=== PATIENT | female | born 1980 | race Caucasian/White ===

== ENCOUNTER 2018-06-21 13:58 | Emergency (ER) | payer MEDICAID ==
[~2018-06-21] VITALS: Ht 167.6 cm; Wt 95.3 kg
[2018-06-21 14:05] VITALS: BP 130/78
--- NOTE | 2018-06-21 15:11 | NUR ---
PT AMBULATES TO BED 5
--- NOTE | 2018-06-21 15:13 | NUR ---
BIB SELF. AAOX4. C/O COUGH X2 WEEKS, REPORTS USING BREATHING MACHINE WITH NO RELIEF. USED DAYQUIL, NYQUIL. NO SOB NOTED. INSPIRATORY WHEEZING NOTED TO L UPPER LOBE. PT STATES PRODUCTIVE COUGH WITH GREEN PHLEGM. HOB UP. BED RAILS UPX1. ON LOW BED POSITION, LOCKED. ER MADE AWARE OF PT STATUS.
[2018-06-21] MEDS ORDERED: ALBUTEROL SULFATE/IPRATROPIU 3 ML SOL IH ONE (15:55)
[2018-06-21] MEDS ORDERED: DEXAMETHASONE 10 MG/ML VIAL IM ONE (15:55)
--- NOTE | 2018-06-21 16:05 | NUR ---
Flu sample collected and given to labor commissioner Sheila
--- NOTE | 2018-06-21 16:14 | NUR ---
AAO X 4 PT TAKEN OFF THE UNIT FOR XRAY VIA WHEEL CHAIR BY [employer] BILL
[2018-06-21 18:10] VITALS: BP 131/80
--- NOTE | 2018-06-21 18:10 | NUR ---
Patient discharged with v/s stable. Written and verbal after care instructions given and explained. Patient alert, oriented and verbalized understanding of instructions. Ambulatory with steady gait. All questions addressed prior to discharge. ID band removed. Patient advised to follow up with PMD. Rx of Albuterol sulfate 0.083% soln, Albuterol 90mcg/actuation, Azithromycin, Prednisone given. Patient educated on indication of medication including possible reaction and side effects. Opportunity to ask questions provided and answered.
== END 2018-06-21 18:10 | disposition home or self-care (01) ==
LOC: MED 13:58
DX: J45.901 Unspecified asthma with (acute) exacerbation (principal); J32.9 Chronic sinusitis, unspecified; I10 Essential (primary) hypertension
CPT/HCPCS: 71046; 87804; 94640; 96372; 99284; J1100; J7620

== ENCOUNTER 2018-07-30 15:45 | Emergency (ER) | payer MEDICAID ==
[~2018-07-30] VITALS: Ht 167.6 cm; Wt 99.5 kg
[2018-07-30 16:11] VITALS: BP 132/84
--- NOTE | 2018-07-30 16:27 | NUR ---
PT AMBULATED TO CHAIR E.
--- NOTE | 2018-07-30 16:55 | NUR ---
PT BIB SELF C/O MED-REFILL. PT DENIES N/V/D; SKIN IS INTACT, PINK/WARM/DRY; AAOX4, PERRL, WITH EVEN AND STEADY GAIT; LUNGS CLEAR BL, BREATHING UNLABORED; HR EVEN AND REGULAR, BL PERIPHERAL PULSES PRESENT; BS ACTIVE X4, NO TENDERNESS TO PALPATION. PT DENIES ANY FEVER, CP, SOB, OR COUGH AT THIS TIME; PT STATES 0/10 PAIN AT THIS TIME; VSS; PATIENT POSITIONED FOR COMFORT; HOB ELEVATED; BEDRAILS UP X2; BED DOWN.
[2018-07-30 17:03] VITALS: BP 124/82
--- NOTE | 2018-07-30 17:04 | NUR ---
Patient discharged with v/s stable. Written and verbal after care instructions given and explained. Patient alert, oriented and verbalized understanding of instructions. Ambulatory with steady gait. All questions addressed prior to discharge. ID band removed. Patient advised to follow up with PMD. Rx of VENTOLIN HFA, ALBUTEROL given. Patient educated on indication of medication including possible reaction and side effects. Opportunity to ask questions provided and answered.
== END 2018-07-30 17:00 | disposition home or self-care (01) ==
LOC: MED 15:45
DX: J45.909 Unspecified asthma, uncomplicated (principal); I10 Essential (primary) hypertension; Z76.0 Encounter for issue of repeat prescription
CPT/HCPCS: 99283

== ENCOUNTER 2019-02-05 15:50 | Emergency (ER) | payer MEDICAID, OTHER ==
[~2019-02-05] VITALS: Ht 167.6 cm; Wt 99.5 kg
[2019-02-05 15:51] VITALS: BP 134/75
--- NOTE | 2019-02-05 15:59 | NUR ---
38/F BIB SELF C/O N/V/D & GENERALIZED ABD PAIN X1 WEEK. PAIN WORSE AFTER EATING. PT THINKS SHE HAD FOOD POISONING FROM CHICKEN SHE ATE.MEDHX:ASTHMA, HTN. PATIENT STATES PAIN OF 5/10 AT THIS TIME.PATIENT POSITIONED FOR COMFORT; HOB ELEVATED; BEDRAILS UP X1; BED DOWN. ER MD MADE AWARE OF PT STATUS.
--- NOTE | 2019-02-05 16:05 | NUR ---
Dr. Caro is evaluating the patient at bedside.
[2019-02-05] MEDS ORDERED: LOPERAMIDE 2 MG CAP PO ONE (16:10)
[2019-02-05] MEDS ORDERED: NACL 0.9% 1,000 ML IV ONE (16:10)
[2019-02-05] MEDS ORDERED: ONDANSETRON 4 MG TAB PO ONE (16:10)
[2019-02-05] MEDS ORDERED: METOCLOPRAMIDE 10 MG/2 ML INJ VIAL IVP ONE (16:15)
[2019-02-05 16:51] LABS: BASOPHILS # (AUTO) 0.1 K/uL (0.00-0.22); BASOPHILS % (AUTO) 1.1 % (0.0-2.0); EOSINOPHILS # (AUTO) 0.7 K/uL (0-0.4); EOSINOPHILS % (AUTO) 6.9 % (0.0-4.0); HEMATOCRIT 36.9 % (36-48); HEMOGLOBIN 11.9 g/dL (12.0-16.0); LYMPHOCYTES # (AUTO) 3.4 K/uL (2.5-16.5); MEAN CORPUSCULAR HEMOGLOBIN 25 pg (27-31); MEAN CORPUSCULAR HGB CONC 32 g/dL (33-37); MEAN CORPUSCULAR VOLUME 78.8 fL (80-94); MONOCYTES # (AUTO) 0.6 K/uL (0.8-1.0); MONOCYTES % (AUTO) 5.4 % (1.7-9.3); NEUTROPHILS # (AUTO) 5.6 K/uL (1.8-7.7); NEUTROPHILS % (AUTO) 53.6 % (42.2-75.2); PLATELET COUNT (AUTO) 461 K/uL (140-450); RED BLOOD CELL COUNT(AUTO) 4.68 MIL/uL (4.20-5.40); RED CELL DISTRIBUTION WIDTH 15.8 % (11.6-13.7); WHITE BLOOD COUNT (AUTO) 10.4 K/uL (4.8-10.8)
[2019-02-05 17:10] LABS: ANION GAP 12.1 (8-16); CARBON DIOXIDE 29.1 mmol/L (21-32); CREATININE 0.8 mg/dL (0.6-1.3); POTASSIUM 3.2 mmol/L (3.5-5.1)
[2019-02-05 17:15] LABS: ALBUMIN 3.3 g/dL (3.4-5.0); TOTAL BILIRUBIN 0.2 mg/dL (0.0-1.0)
[2019-02-05] MEDS ORDERED: POTASSIUM CHLORIDE 10 MEQ TABER PO ONE (17:25)
--- NOTE | 2019-02-05 17:37 | NUR ---
IV removed, catheter intact and site benign. Applied folded 4x4 gauze and tape to stop bleeding.
[2019-02-05 17:41] VITALS: BP 128/70
--- NOTE | 2019-02-05 17:41 | NUR ---
Patient discharged with v/s stable. Written and verbal after care instructions given and explained. Patient alert, oriented and verbalized understanding of instructions. Ambulatory with steady gait. All questions addressed prior to discharge. ID band removed. Patient advised to follow up with PMD. Rx of Reglan 10mg given. Patient educated on indication of medication including possible reaction and side effects. Opportunity to ask questions provided and answered.
--- NOTE | 2019-02-11 06:55 | NUR ---
Late entry. Confirmed with RN that 0.9 NS IV 1000ml completed at 1622 and wasw started at 1537
== END 2019-02-05 17:41 | disposition home or self-care (01) ==
LOC: MED 15:50
DX: R11.2 Nausea with vomiting, unspecified (principal); R19.7 Diarrhea, unspecified; J45.909 Unspecified asthma, uncomplicated; I10 Essential (primary) hypertension; Z98.890 Other specified postprocedural states
CPT/HCPCS: 36415; 80053; 81002; 81025; 85025; 96361; 96374; 99283; J2765; J7030

== ENCOUNTER 2019-06-03 23:46 | Emergency (ER) | payer OTHER ==
[~2019-06-03] VITALS: Ht 167.6 cm; Wt 99.8 kg
--- NOTE | 2019-06-03 23:50 | NUR ---
PT CATRINA AZULS. TAKEN TO BED 4
[2019-06-03 23:55] VITALS: BP 143/84
--- NOTE | 2019-06-04 00:05 | NUR ---
38 YO FEMALE BIBA CO CHEST PAIN SINCE TODAY. PT STAED THAT SHE TOOK A NEW DIET PILL AND NOW SHE HAS THE CHEST PAIN. PT DECRIBES THE PAIN 8/10 STABBING PAIN THAT STARTS UPPER EPIGASTRIC AREA AND RADIATES UNDER BREASTS AND UP STERNUM. EKG DONE WITH NSR AT 86 BEATS. PT HAS HX OF HTN, ASTHMA AND IS BORDERLINE DM.
--- NOTE | 2019-06-04 00:09 | NUR ---
Dr. Starks examining patient.
[2019-06-04 00:53] LABS: BASOPHILS # (AUTO) 0.1 K/uL (0.00-0.22); BASOPHILS % (AUTO) 0.6 % (0.0-2.0); EOSINOPHILS # (AUTO) 0.6 K/uL (0-0.4); EOSINOPHILS % (AUTO) 3.8 % (0.0-4.0); HEMATOCRIT 37.4 % (36-48); HEMOGLOBIN 11.9 g/dL (12.0-16.0); LYMPHOCYTES # (AUTO) 1.9 K/uL (2.5-16.5); LYMPHOCYTES % (AUTO) 11.9 % (20.5-51.1); MEAN CORPUSCULAR HEMOGLOBIN 26 pg (27-31); MEAN CORPUSCULAR HGB CONC 32 g/dL (33-37); MONOCYTES # (AUTO) 0.7 K/uL (0.8-1.0); NEUTROPHILS % (AUTO) 79.7 % (42.2-75.2); PLATELET COUNT (AUTO) 432 K/uL (140-450); RED BLOOD CELL COUNT(AUTO) 4.62 MIL/uL (4.20-5.40); RED CELL DISTRIBUTION WIDTH 15.1 % (11.6-13.7); WHITE BLOOD COUNT (AUTO) 16.3 K/uL (4.8-10.8)
--- NOTE | 2019-06-04 01:09 | NUR ---
SITTING UPRIGHT IN [facility]--CONTINUES TO DENIE CHEST PAIN STATED , TOOK A NEW DIET PILL WHICH MADE HER STOMACH HURT RADIATED TO EPIGASTRIC REGION----ADMITS NON COMPLIANT WITH METFORMIN-
[2019-06-04 01:12] LABS: ALBUMIN 3.5 g/dL (3.4-5.0); ANION GAP 12.6 (8-16); CARBON DIOXIDE 28.6 mmol/L (21-32); CREATININE 0.8 mg/dL (0.6-1.3); POTASSIUM 3.2 mmol/L (3.5-5.1); TOTAL BILIRUBIN 0.2 mg/dL (0.0-1.0)
[2019-06-04 01:24] LABS: APPEARANCE,URINE CLOUDY (CLEAR); BILIRUBIN,URINE 1+ (NEGATIVE); BLOOD, URINE 3+ (NEGATIVE); COLOR,URINE RED (YELLOW); LEUKOCYTE ESTERASE ,URINE TRACE (NEGATIVE); NITRITE, URINE NEGATIVE (NEGATIVE); PH,URINE 5.5 (5.0-9.0); UGLUCOSE NEGATIVE (NEGATIVE)
[2019-06-04 01:39] LABS: RBC,URINE TOO NUMEROUS TO COUN /HPF (0-5)
--- NOTE | 2019-06-04 01:42 | NUR ---
ULTRASOUND AT BEDSIDE
[2019-06-04 03:24] VITALS: BP 133/87
--- NOTE | 2019-06-04 03:24 | NUR ---
INSTRUCTED TO RETURN FOR SURGICAL EVAL PER Patient discharged with v/s stable. Written and verbal after care instructions given and explained. Patient verbalized understanding. Ambulatory with steady gait. All questions addressed prior to discharge. Advised to follow up with PMD.
== END 2019-06-04 03:24 | disposition home or self-care (01) ==
LOC: MED 23:46
DX: K80.20 Calculus of gallbladder without cholecystitis without obstruction (principal); K82.8 Other specified diseases of gallbladder; E11.9 Type 2 diabetes mellitus without complications; J45.909 Unspecified asthma, uncomplicated; I10 Essential (primary) hypertension; Z98.890 Other specified postprocedural states
CPT/HCPCS: 36415; 71045; 76705; 80053; 81001; 83690; 84484; 84702; 85025; 87086; 93005; 99285; Q0092

== ENCOUNTER 2019-06-05 11:30 | Inpatient (IN) | payer OTHER ==
[~2019-06-05] VITALS: Ht 167.6 cm; Wt 99.8 kg
[2019-06-05 11:41] VITALS: BP 105/64
--- NOTE | 2019-06-05 12:06 | NUR ---
PT. AMBULATED TO BED 12
--- NOTE | 2019-06-05 12:10 | NUR ---
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
--- NOTE | 2019-06-05 12:52 | NUR ---
PT COMFORTABLE IN BED SIDE RAILS UP AND LOCK.
--- NOTE | 2019-06-05 12:53 | NUR ---
DR ARENAS AT BEDSIDE EVALUATING PT.
[2019-06-05] MEDS ORDERED: NACL 0.9% 500 ML IV ONE (13:01)
[2019-06-05] MEDS ORDERED: KETOROLAC 30 MG/ML VIAL IVP ONE (13:05)
--- NOTE | 2019-06-05 13:45 | NUR ---
clint at bedside.
[2019-06-05 13:49] LABS: BASOPHILS # (AUTO) 0.1 K/uL (0.00-0.22); BASOPHILS % (AUTO) 1.1 % (0.0-2.0); EOSINOPHILS # (AUTO) 0.3 K/uL (0-0.4); EOSINOPHILS % (AUTO) 3.7 % (0.0-4.0); HEMATOCRIT 38.4 % (36-48); HEMOGLOBIN 12.5 g/dL (12.0-16.0); LYMPHOCYTES # (AUTO) 2.7 K/uL (2.5-16.5); MEAN CORPUSCULAR HEMOGLOBIN 26 pg (27-31); MEAN CORPUSCULAR HGB CONC 33 g/dL (33-37); MEAN CORPUSCULAR VOLUME 81.1 fL (80-94); MONOCYTES # (AUTO) 0.4 K/uL (0.8-1.0); MONOCYTES % (AUTO) 4.7 % (1.7-9.3); NEUTROPHILS # (AUTO) 4.5 K/uL (1.8-7.7); NEUTROPHILS % (AUTO) 56.5 % (42.2-75.2); PLATELET COUNT (AUTO) 436 K/uL (140-450); RED BLOOD CELL COUNT(AUTO) 4.73 MIL/uL (4.20-5.40); RED CELL DISTRIBUTION WIDTH 15.3 % (11.6-13.7)
--- NOTE | 2019-06-05 14:22 | NUR ---
PT AMBULATED TO BR.
[2019-06-05 14:34] LABS: ALBUMIN 3.6 g/dL (3.4-5.0); ANION GAP 13.3 (8-16); CARBON DIOXIDE 27.2 mmol/L (21-32); CREATININE 0.7 mg/dL (0.6-1.3); POTASSIUM 3.5 mmol/L (3.5-5.1); TOTAL BILIRUBIN 0.4 mg/dL (0.0-1.0)
[2019-06-05] MEDS ORDERED: MORPHINE SULFATE 2 MG/ML SYR IVP PRN (17:15)
--- NOTE | 2019-06-05 18:15 | NUR ---
Patient will be admitted to care of DR Carranza. Admited to MST. Will go to room 119 A. Belongings list completed. Report to checo madera.
--- NOTE | 2019-06-05 18:15 | NUR ---
RECEIVED BEDSIDE SHIFT REPORT FROM ER NURSE FOR CONTINUATION OF CARE.
--- NOTE | 2019-06-05 19:20 | NUR ---
BEDSIDE SHIFT REPORT GIVEN TO BOOTH USHER NURSE.
--- NOTE | 2019-06-05 19:20 | NUR ---
RECEIVED BEDSIDE REPORT FROM AM SHIFT RN FOR PT'S CONTINUITY OF CARE. PT IS NEW ADMIT, CURRENTLY OFF UNIT FOR HIDA SCAN PROCEDURE.
--- NOTE | 2019-06-05 20:19 | NUR ---
RECEIVED CALL FROM [employer], PT NEEDED PRN IVP PAIN MEDICATION. ADMINISTERED PRN IVP PAIN MEDICATION MORPHINE 2MG ORDERED. PT FELT NAUSEATED SHORTLY AFTER. WILL MEDICATE PT WITH ANTI NAUSEA MEDICATION.
[2019-06-05] MEDS: ONDANSETRON 4 MG/2 ML VIAL IVP PRN (20:29)
--- NOTE | 2019-06-05 20:29 | NUR ---
ADMINISTERED PRN IVP ANTI NAUSEA MEDICATION ORDERED. PT TOLERATED IT WELL. PT TEACHING GIVEN, STAYED WITH PT FOR A BIT. INFORMED NUCLEAR [employer] TECH TO CALL RN IF NEEDED.
[2019-06-05] MEDS ORDERED: PIPERACILLIN/TAZOBACTAM 3.375 GM VIAL IV ONE (21:59)
[2019-06-05 22:00] VITALS: BP 113/82
--- NOTE | 2019-06-05 22:00 | NUR ---
PT BACK IN THE UNIT FROM CT FOR CT ABD. VS CHECKED, ADMISSION ASSESSMENT AND QUESTIONNAIRE DONE. EXPLAINED T PT THE EDGE FINISHER ROUTINE AN HOSPITAL ENVIRONMENT, PT VERBALIZED UNDERSTANDING. WILL CONTINUE TO MONITOR PT.
[2019-06-05] MEDS: PIPERACILLIN/TAZOBACTAM 3.375 GM in DEXTROSE 5% 50 ML IV SCH (22:23)
--- NOTE | 2019-06-05 22:45 | NUR ---
RECEIVED TELEPHONE ORDER FROM DR. FARMER TO OBTAIN CONSENT FROM PT FOR LAPAROSCOPIC POSSIBLE OPEN CHOLECYSTECTOMY POSSIBLE CHOLANGIOGRAM, TYPE AND SCREEN, AND D5 NS AT 125ML/HR. WILL EXPEDITE ORDER.
--- NOTE | 2019-06-05 23:00 | NUR ---
CONSENT OBTAINED FOR PROCEDURE IN A.M. INSTRUCTED PT TO ASK MD IN A.M. IF AND WHEN PT HAS ADDITIONAL QUESTIONS. PT HAS BEEN NPO. PT DENIES ANY PAIN. WILL CONTINUE TO MONITOR PT.
[2019-06-05] MEDS: DEXT 5% / NACL 0.9% 500 ML IV SCH (23:13)
--- NOTE | 2019-06-06 02:00 | NUR ---
MADE ROUNDS. PT ASLEEP WITH NO SIGNS OF DISTRESS. WILL CONTINUE TO MONITOR PT.
[2019-06-06] MEDS: DEXT 5% / NACL 0.9% 500 ML IV SCH ×4 (02:45→17:03)
--- NOTE | 2019-06-06 04:15 | NUR ---
MADE ROUNDS. NOTIFIED PT RE: SCHEDULED PROCEDURE, INSTRUCTED PT NOT TO HAVE ANY CLOTHING OR JEWELRY FOR THE SX. PT VERBALIZED UNDERSTANDING.
[2019-06-06] MEDS ORDERED: PIPERACILLIN/TAZOBACTAM 3.375 GM VIAL IV ONE (04:50)
[2019-06-06] MEDS: PIPERACILLIN/TAZOBACTAM 3.375 GM in DEXTROSE 5% 50 ML IV SCH (05:27)
--- NOTE | 2019-06-06 05:27 | NUR ---
ADMINISTERED SCHEDULED IV ABX ORDERED. PT ASLEEP WITH NO SIGNS OF DISTRESS. WILL CONTINUE TO MONITOR PT.
[2019-06-06 06:21] LABS: BASOPHILS # (AUTO) 0.1 K/uL (0.00-0.22); BASOPHILS % (AUTO) 0.8 % (0.0-2.0); EOSINOPHILS # (AUTO) 0.3 K/uL (0-0.4); EOSINOPHILS % (AUTO) 4.2 % (0.0-4.0); HEMATOCRIT 37.2 % (36-48); HEMOGLOBIN 12.1 g/dL (12.0-16.0); LYMPHOCYTES # (AUTO) 2.1 K/uL (2.5-16.5); LYMPHOCYTES % (AUTO) 26.5 % (20.5-51.1); MEAN CORPUSCULAR HEMOGLOBIN 26 pg (27-31); MEAN CORPUSCULAR HGB CONC 32 g/dL (33-37); MEAN CORPUSCULAR VOLUME 81.5 fL (80-94); MONOCYTES # (AUTO) 0.6 K/uL (0.8-1.0); MONOCYTES % (AUTO) 7.7 % (1.7-9.3); NEUTROPHILS # (AUTO) 4.8 K/uL (1.8-7.7); NEUTROPHILS % (AUTO) 60.8 % (42.2-75.2); PLATELET COUNT (AUTO) 386 K/uL (140-450); RED BLOOD CELL COUNT(AUTO) 4.57 MIL/uL (4.20-5.40); RED CELL DISTRIBUTION WIDTH 15.1 % (11.6-13.7)
--- NOTE | 2019-06-06 06:50 | NUR ---
INFORMED PT RE: URINE TEST PROTOCOL PRIOR TO SX. PT LYING DOWN ASLEEP, WOKE UP, VERBALIZED UNDERSTANDING. WILL ENDORSE TO AM SHIFT RN FOR PT'S CONTINUITY OF CARE. PREOP CHECKLIST DONE.
[2019-06-06 06:53] LABS: PROTHROMBIN TIME 9.8 secs (10.8-13.4)
[2019-06-06 07:00] LABS: ALBUMIN 3.1 g/dL (3.4-5.0); CARBON DIOXIDE 30.9 mmol/L (21-32); CREATININE 0.8 mg/dL (0.6-1.3); TOTAL BILIRUBIN 0.5 mg/dL (0.0-1.0)
--- NOTE | 2019-06-06 07:15 | NUR ---
RECEIVED CALL FROM FRANK (LAB) FOR CRITICAL LAB VALUE, POTASSIUM - 2.9, REPORT GIVEN TO SÁNCHEZ JUSTIN RN TO PAGE DR. DEVINE/CARPENTER REFRIGERATOR MD FOR REPORTING.
--- NOTE | 2019-06-06 07:20 | NUR ---
PAGED DR. DEVINE. AWAITING ORDERS. SAFETY MEASURES IN PLACE
--- NOTE | 2019-06-06 07:25 | NUR ---
RECEIVED BEDSIDE REPORT FROM NIGHTSHIFT NURSE. PT RESTING IN BED UPON ARRIVAL. ABLE TO MAKE NEEDS KNOWN. RESPIRATIONS EVEN AND UNLABORED WITH NO SOB OR RESPIRATORY DISTRESS. SKIN WARM AND DRY TO TOUCH. IV SITE IN LEFT HAND 22G IS CLEAN, DRY, AND INTACT. SAFETY MEASURES IN PLACE. WILL CONTINUE TO MONITOR.
[2019-06-06 07:26] LABS: POTASSIUM 2.9 mmol/L (3.5-5.1)
[2019-06-06 08:00] VITALS: BP 108/53
--- NOTE | 2019-06-06 08:38 | NUR ---
PT LEFT TO GO TO SURGERY. SAFETY MEASURES IN PLACE. WILL CONTINUE TO MONITOR
[2019-06-06] MEDS: ENOXAPARIN 40 MG/0.4 ML SYR SUBQ SCH (09:00)
[2019-06-06] MEDS: BUPIVACAINE-MPF 0.25% 30 ML VIAL INJ ONE ×2 (09:08→10:36)
[2019-06-06] MEDS ORDERED: HYDROcodone/APAP 5/325 MG 1 TAB TAB PO PRN (10:30)
[2019-06-06] MEDS ORDERED: HYDROmorphone 1 MG/ML AMP IVP PRN (10:30)
--- NOTE | 2019-06-06 10:45 | NUR ---
PATIENT RETURNED FROM SURGERY. REPORT GIVEN FROM OR NURSE. PT RESTING IN BED UPON ARRIVAL. ABLE TO MAKE NEEDS KNOWN. RESPIRATIONS EVEN AND UNLABORED WITH NO SOB OR RESPIRATORY DISTRESS. SKIN WARM AND DRY TO TOUCH. SAFETY MEASURES IN PLACE. WILL CONTINUE TO MONITOR
[2019-06-06] MEDS ORDERED: POTASSIUM CHLORIDE 10 MEQ TABER PO SCH ×2 (11:16→15:17)
[2019-06-06] MEDS: ACETAMINOPHEN 325 MG TAB PO PRN ×2 (11:36→17:37)
--- NOTE | 2019-06-06 12:05 | NUR ---
DC PLANNIN YRS OLD FEMALE PATIENT WAS ADMITTED FROM HOME WITH A DX OF CHOLECYSTITIS. PT HAS A HX OF ASTHMA, BORDERLINE DM AND HTN . US OF ABD SHOWED CHOLECYSTITIS WITH MILD GALLBLADDER WAS THICKENING. ADMINISTERED IVF, IV PAIN MEDS AND ZOSYN IV ABX . CONSULTED WITH SURGEON , DR SIERRA PERFORMED LAP LORENE TODAY PT TOLERATED WELL WILL CONTINUE TO MONITOR .DC PLAN TO GO HOME WHEN STABLE CM TO FOLLOW.
--- NOTE | 2019-06-06 12:30 | NUR ---
PT IV IS MALFUNCTIONING. IT NO LONGER FLUSHES NOR IS THERE BLOOD RETURN. NEW IV PLACED IN RIGHT HAND 22G IS CLEAN, DRY, AND INTACT. SAFETY MEASURES IN PLACE. WILL CONTINUE TO MONITOR
[2019-06-06] MEDS: SODIUM CHLORIDE FLUSH 10 ML SYR IVF SCH ×2 (13:07→20:41)
[2019-06-06] MEDS: ONDANSETRON 4 MG/2 ML VIAL IVP PRN (13:08)
--- NOTE | 2019-06-06 13:12 | NUR ---
PT CALLED AND COMPLAINED OF NAUSEA. PRN ZOFRAN ADMINISTERED PRESCRIBED PER MD ORDER. PT TOLERATED WELL. MEDICATION EDUCATION PERFORMED. PT VERBALIZED UNDERSTANDING. SAFETY MEASURES IN PLACE. WILL CONTINUE TO MONITOR.
--- NOTE | 2019-06-06 15:30 | NUR ---
PT RESTING IN BED UPON ARRIVAL. ABLE TO MAKE NEEDS KNOWN. RESPIRATIONS EVEN AND UNLABORED WITH NO SOB OR RESPIRATORY DISTRESS. SKIN WARM AND DRY TO TOUCH. SAFETY MEASURES IN PLACE. WILL CONTINUE TO MONITOR
[2019-06-06 16:00] VITALS: BP 104/68
--- NOTE | 2019-06-06 17:37 | NUR ---
PATIENT CALLED AND COMPLAINED OF A MILD HEADACHE. PRN TYLENOL ADMINISTERED PRESCRIBED PER MD ORDER. PT TOLERATED WELL. MEDICATION EDUCATION PERFORMED. PT VERBALIZED UNDERSTANDING. SAFETY MEASURES IN PLACE. WILL CONTINUE TO MONITOR
--- NOTE | 2019-06-06 19:09 | NUR ---
ENDORSED AT BEDSIDE TO NIGHTSHIFT NURSE. PT RESTING IN BED UPON ARRIVAL. ABLE TO MAKE NEEDS KNOWN. RESPIRATIONS EVEN AND UNLABORED WITH NO SOB OR RESPIRATORY DISTRESS. SKIN WARM AND DRY TO TOUCH. SAFETY MEASURES IN PLACE. PT STABLE
--- NOTE | 2019-06-06 19:13 | NUR ---
RECEIVED PATIENT FROM AM SHIFT NURSE IN STABLE CONDITION FOR CONTINUITY OF CARE. RESPIRATIONS EVEN, UNLABORED. NO C/O PAIN. NO S/SX ACUTE DISTRESS. IV SITE NOTED TO RIGHT HAND 22G PATENT/INTACT, INFUSING FLUIDS WELL. CALL LIGHT WITHIN REACH. WILL CONTINUE TO MONITOR.
[2019-06-06] MEDS: KETOROLAC 30 MG/ML VIAL IVP PRN (20:45)
--- NOTE | 2019-06-06 20:45 | NUR ---
PATIENT C/O ACHING BACK PAIN 12/02. MEDICATED ORDERED. REPOSITIONED FOR COMFORT. CALL LIGHT WITHIN REACH.WILL CONTINUE TO MONITOR.
--- NOTE | 2019-06-06 21:45 | NUR ---
REASSESSED PAIN LEVEL AT 0/10. PATIENT RESTING COMFORTABLY IN BED. NO S/SX ACUTE DISTRESS. CALL LIGHT WITHIN REACH.WILL CONTINUE TO MONITOR.
--- NOTE | 2019-06-06 23:10 | NUR ---
MADE ROUNDS. PATIENT AWAKE AND IN STABLE CONDITION. NO C/O PAIN. NO S/SX ACUTE DISTRESS. CALL LIGHT WITHIN REACH. WILL CONTINUE TO MONITOR.
[2019-06-07] VITALS: BP 139/84
[2019-06-07] MEDS: ACETAMINOPHEN 325 MG TAB PO PRN (00:46)
[2019-06-07] MEDS: DEXT 5% / NACL 0.9% 500 ML IV SCH ×2 (00:46→08:19)
--- NOTE | 2019-06-07 00:46 | NUR ---
PATIENT C/O ACHING BACK PAIN 08/01. MEDICATED ORDERED. CALL LIGHT WITHIN REACH. WILL CONTINUE TO MONITOR.
--- NOTE | 2019-06-07 01:46 | NUR ---
REASSESSED PAIN LEVEL, PATIENT STATED PAIN IS 4/10. REPOSITIONED AND PROVIDED LOW STIMULI ENVIRONMENT TO ASSIST IN PAIN MANAGEMENT. WILL CONTINUE TO MONITOR.
[2019-06-07] MEDS: KETOROLAC 30 MG/ML VIAL IVP PRN ×2 (02:48→09:45)
--- NOTE | 2019-06-07 02:48 | NUR ---
PATIENT C/O ACHING BACK PAIN 08/01. MEDICATED ORDERED. WILL CONTINUE TO MONITOR.
--- NOTE | 2019-06-07 03:48 | NUR ---
REASSESSED PATIENT'S PAIN LEVEL, PATIENT IS ASLEEP. NO S/SX ACUTE DISTRESS. CALL LIGHT WITHIN REACH. WILL CONTINUE TO MONITOR.
[2019-06-07] MEDS: SODIUM CHLORIDE FLUSH 10 ML SYR IVF SCH (05:05)
--- NOTE | 2019-06-07 05:23 | NUR ---
PATIENT IS ASLEEP AND IN STABLE CONDITION. NO C/O PAIN. NO S/SX ACUTE DISTRESS. CALL LIGHT WITHIN REACH. WILL CONTINUE TO MONITOR.
[2019-06-07 06:32] LABS: BASOPHILS # (AUTO) 0.1 K/uL (0.00-0.22); BASOPHILS % (AUTO) 0.5 % (0.0-2.0); EOSINOPHILS % (AUTO) 0.2 % (0.0-4.0); HEMOGLOBIN 10.7 g/dL (12.0-16.0); LYMPHOCYTES # (AUTO) 2.8 K/uL (2.5-16.5); LYMPHOCYTES % (AUTO) 22.2 % (20.5-51.1); MEAN CORPUSCULAR HEMOGLOBIN 26 pg (27-31); MEAN CORPUSCULAR HGB CONC 32 g/dL (33-37); MEAN CORPUSCULAR VOLUME 81.8 fL (80-94); MONOCYTES # (AUTO) 0.7 K/uL (0.8-1.0); MONOCYTES % (AUTO) 5.8 % (1.7-9.3); NEUTROPHILS # (AUTO) 8.9 K/uL (1.8-7.7); NEUTROPHILS % (AUTO) 71.3 % (42.2-75.2); PLATELET COUNT (AUTO) 402 K/uL (140-450); RED BLOOD CELL COUNT(AUTO) 4.15 MIL/uL (4.20-5.40); RED CELL DISTRIBUTION WIDTH 15.1 % (11.6-13.7); WHITE BLOOD COUNT (AUTO) 12.4 K/uL (4.8-10.8)
--- NOTE | 2019-06-07 07:16 | NUR ---
ENDORSED PATIENT IN STABLE CONDITION TO AM SHIFT FOR CONTINUITY OF CARE.
--- NOTE | 2019-06-07 07:21 | NUR ---
RECEIVED BEDSIDE REPORT FROM NIGHTSHIFT NURSE. PT RESTING IN BED. ABLE TO MAKE NEEDS KNOWN. RESPIRATIONS EVEN AND UNLABORED WITH NO SOB OR RESPIRATORY DISTRESS. SKIN WARM AND DRY TO TOUCH. IV SITE IN RIGHT HAND 22G IS CLEAN, DRY, AND INTACT. SAFETY MEASURES IN PLACE. WILL CONTINUE TO MONITOR
--- NOTE | 2019-06-07 07:46 | NUR ---
PATIENT HAS BEEN SCREENED AND CATEGORIZED LOW NUTRITION RISK. PATIENT WILL BE SEEN WITHIN 7 DAYS OF ADMISSION. 06/13/[address]
[2019-06-07 08:00] VITALS: BP 102/52
[2019-06-07 08:28] LABS: ANION GAP 11.2 (8-16); CARBON DIOXIDE 28.5 mmol/L (21-32); CREATININE 0.8 mg/dL (0.6-1.3); POTASSIUM 3.7 mmol/L (3.5-5.1); TOTAL BILIRUBIN 0.2 mg/dL (0.0-1.0)
[2019-06-07 08:29] LABS: ALBUMIN 2.9 g/dL (3.4-5.0)
[2019-06-07] MEDS ORDERED: METOCLOPRAMIDE 10 MG/2 ML INJ VIAL ONE (08:45)
[2019-06-07] MEDS ORDERED: GLYCOPYRROLATE 0.2 MG/ML VIAL ONE (08:45)
[2019-06-07] MEDS ORDERED: fentaNYL 0.05 MG/ML VIAL ONE (08:45)
[2019-06-07] MEDS ORDERED: SUCCINYLCHOLINE CHLORIDE 200 MG/10 ML VIAL IVP ONE (08:45)
[2019-06-07] MEDS ORDERED: SEVOFLURANE 250 ML BTL INH ONE (08:45)
[2019-06-07] MEDS ORDERED: PROPOFOL 200 MG/20 ML VIAL IV ONE (08:45)
[2019-06-07] MEDS ORDERED: NEOSTIGMINE 1:1000 10 MG/10 ML VIAL ONE (08:45)
[2019-06-07] MEDS ORDERED: DEXAMETHASONE 4 MG/ML VIAL ONE (08:45)
[2019-06-07] MEDS ORDERED: ROCURONIUM 50 MG/5 ML VIAL IV ONE (08:45)
[2019-06-07] MEDS ORDERED: MIDAZOLAM 2 MG/2 ML VIAL ONE (08:45)
[2019-06-07] MEDS ORDERED: KETOROLAC 30 MG/ML VIAL ONE (08:45)
[2019-06-07] MEDS ORDERED: ONDANSETRON 4 MG/2 ML VIAL ONE (08:45)
[2019-06-07] MEDS: ENOXAPARIN 40 MG/0.4 ML SYR SUBQ SCH (09:00)
[2019-06-07] MEDS: ONDANSETRON 4 MG/2 ML VIAL IVP PRN (09:45)
--- NOTE | 2019-06-07 09:45 | NUR ---
PT CALLED AND COMPLAINED OF PAIN. PRN PAIN MEDICATION ADMINISTERED PRESCRIBED PER MD ORDER. PT TOLERATED WELL. MEDICATION EDUCATION PERFORMED. PT VERBALIZED UNDERSTANDING. SAFETY MANURES IN PLACE. WILL CONTINUE TO MONITOR
--- NOTE | 2019-06-07 10:45 | NUR ---
PT IS AWARE OF DISCHARGE AND WOULD LIKE TO LEAVE AFTER LUNCH. SAFETY MEASURES IN PLACE. WILL CONTINUE TO MONITOR
[2019-06-07 11:28] VITALS: BP 102/52
--- NOTE | 2019-06-07 12:15 | NUR ---
WENT OVER DISCHARGE INSTRUCTIONS WITH PATIENT. PT SIGNED APPROPRIATE DOCUMENTS. INSTRUCTED PT HOW TO USE INCENTIVE SPIROMETER. PT VERBALIZED UNDERSTANDING AND PERFORMED INTERVENTION. PT TOLERATED WELL. INSTRUCTED PATIENT ON S/P COLY WOUND CARE. PT VERBALIZED UNDERSTANDING. INSTRUCTED PT TO VISIT ED FOR ANY SIGNS OF DISTRESS. PT VERBALIZED UNDERSTANDING. GAVE PRESCRIPTION AND DR. SIERRA'S CARD TO PATIENT. PT REFUSED FLU VACCINE AND DID NOT QUALIFY FOR PNA VACCINE. REMOVED INTACT IV CANNULA AND ID BAND. PT CHANGED INTO HER OWN CLOTHES AND GATHERED HER BELONGINGS AND WAS ESCORTED OUT TO GO HOME. PT IS STABLE.
--- NOTE | 2019-06-08 14:26 | NUR ---
PCP Appointment: LYNN arranged hospital follow up appointment for patient. LYNN spoke with Peggy from Dr. Jae Ridley's office [phone]. LYNN made appointment for 06/15/2019 at 1200 @ [address] [facility] [place] [address]. Patient was notified and agreeable to hospital follow up. No further needs identified.
== END 2019-06-07 12:18 | disposition home or self-care (01) | DRG 263 ==
LOC: MED 11:30 → MTU 17:14
PROVIDERS: ADMIT Hospitalist; ATTEND Hospitalist
PROC: 0FT44ZZ Resection of Gallbladder, Percutaneous Endoscopic Approach (ICD-10-PCS; principal; 2019-06-06 09:00)
DX: K80.00 Calculus of gallbladder with acute cholecystitis without obstruction (principal); E66.01 Morbid (severe) obesity due to excess calories; E11.9 Type 2 diabetes mellitus without complications; I10 Essential (primary) hypertension; J45.909 Unspecified asthma, uncomplicated; Z98.891 History of uterine scar from previous surgery; Z68.35 Body mass index [BMI] 35.0-35.9, adult
CPT/HCPCS: 36415; 76705; 78445; 80053; 81025; 82374; 83690; 85025; 85610; 85730; 86886; 86900; 86901; 87081; 96360; 96361; 99285; A9510; J0330; J1100; J1885; J2250; J2270; J2405; J2543; J2704; J2710; J2765; J3010; J3490; J7030; J7042; J7060; Q0092

== ENCOUNTER 2019-09-06 15:19 | Emergency (ER) | payer OTHER ==
[~2019-09-06] VITALS: Ht 167.6 cm; Wt 97.5 kg
[2019-09-06 15:28] VITALS: BP 137/76
--- NOTE | 2019-09-06 15:30 | NUR ---
C/O ASTHMA FLARE UP STARTING APPROX 30 MIN AGO . PT STATES SHE NORMALLY USES ALBUTEROL NEBULIZED TX BUT SHE RAN OUT. STATES HER DAUGHTER GOT A KITTEN YESTERDAY AND SHE THINKS THIS CAUSED THE FLARE UP. O2 94% RA, BREATHING UNLABORED, NO ACCESORY MUSCLE USE NOTED. WHEEZING AUSCULTATED IN BILAT BASES. PT PLACED ON BEDSIDE JUNIOR UNDERWRITER AT THIS TIME.
[2019-09-06] MEDS ORDERED: predniSONE 20 MG TAB PO ONE (16:05)
[2019-09-06] MEDS ORDERED: IPRATROPIUM 0.02% 0.5 MG/2.5 ML NEBU INH ONE (16:05)
[2019-09-06] MEDS ORDERED: ALBUTEROL 0.083% 2.5 MG/3 ML NEBU INH ONE (16:05)
--- NOTE | 2019-09-06 16:05 | NUR ---
ERMD AT BEDSIDE
--- NOTE | 2019-09-06 16:10 | NUR ---
ERMD EVAL PT AT BEDSIDE
--- NOTE | 2019-09-06 16:20 | NUR ---
ADMINISTERED [facility] THERAPY AND RESPIRATORY DRUGS ORDERED ENCOURAGED PATIENT WITH ACKNOWLEDGEMENT FOR INTERMITTENT DEEP BREATHING DURING THERAPY
[2019-09-06 17:00] VITALS: BP 131/74
--- NOTE | 2019-09-06 17:00 | NUR ---
Patient discharged with v/s stable. Written and verbal after care instructions given and explained. Patient alert, oriented and verbalized understanding of instructions. Ambulatory with steady gait. All questions addressed prior to discharge. ID band removed. Patient advised to follow up with PMD. Rx of ALBUTEROL & PREDNISONE given. Patient educated on indication of medication including possible reaction and side effects. Opportunity to ask questions provided and answered.
== END 2019-09-06 17:00 | disposition home or self-care (01) ==
LOC: MED 15:19
DX: J45.901 Unspecified asthma with (acute) exacerbation (principal); I10 Essential (primary) hypertension; Z76.0 Encounter for issue of repeat prescription
CPT/HCPCS: 81002; 94640; 99283; J7512; J7613; J7644

== ENCOUNTER 2020-05-18 17:08 | Emergency (ER) | payer OTHER ==
--- NOTE | 2020-05-18 17:29 | NUR ---
PATIENT LEFT WITHOUT BEING SEEN BY DR. Farmer. NO FURTHER CARE PROVIDED FOR PATIENT.
[2020-05-19] MEDS ORDERED: FURO-572 PO (01:21)
[2020-05-19] MEDS ORDERED: AMOX500C25 PO (01:21)
[2020-05-19] MEDS ORDERED: METF500T PO (01:21)
[2020-05-19] MEDS ORDERED: CEPH250C16 PO (12:59)
== END 2020-05-18 17:29 | disposition left against medical advice (07) ==
LOC: MED 17:08
DX: R42 Dizziness and giddiness (principal); Z53.21 Procedure and treatment not carried out due to patient leaving prior to being seen by health care provider

== ENCOUNTER 2020-05-18 20:58 | Inpatient (IN) | payer OTHER, SELFPAY ==
[~2020-05-18] VITALS: Ht 167.6 cm; Wt 104.4 kg
[2020-05-18 21:13] VITALS: BP 148/86
[2020-05-18] MEDS ORDERED: NACL 0.9% 1,000 ML IV ONE (22:05)
[2020-05-18] MEDS ORDERED: ONDANSETRON 4 MG/2 ML VIAL IVP ONE (22:05)
[2020-05-18] MEDS ORDERED: MECLIZINE 25 MG TAB PO ONE (22:05)
[2020-05-18 22:50] LABS: BASOPHILS # (AUTO) 0.2 K/uL (0.00-0.22); BASOPHILS % (AUTO) 1.5 % (0.0-2.0); EOSINOPHILS # (AUTO) 0.5 K/uL (0-0.4); EOSINOPHILS % (AUTO) 3.9 % (0.0-4.0); HEMATOCRIT 35.5 % (36-48); HEMOGLOBIN 11.3 g/dL (12.0-16.0); LYMPHOCYTES # (AUTO) 3.6 K/uL (2.5-16.5); LYMPHOCYTES % (AUTO) 26.9 % (20.5-51.1); MEAN CORPUSCULAR HEMOGLOBIN 25 pg (27-31); MEAN CORPUSCULAR HGB CONC 32 g/dL (33-37); MEAN CORPUSCULAR VOLUME 77.3 fL (80-94); MONOCYTES # (AUTO) 0.9 K/uL (0.8-1.0); MONOCYTES % (AUTO) 6.8 % (1.7-9.3); NEUTROPHILS # (AUTO) 8.2 K/uL (1.8-7.7); NEUTROPHILS % (AUTO) 60.9 % (42.2-75.2); PLATELET COUNT (AUTO) 468 K/uL (140-450); RED BLOOD CELL COUNT(AUTO) 4.59 MIL/uL (4.20-5.40); WHITE BLOOD COUNT (AUTO) 13.5 K/uL (4.8-10.8)
--- NOTE | 2020-05-18 23:22 | NUR ---
PT TAKEN TO BED 2
[2020-05-18 23:27] LABS: ALBUMIN 3.6 g/dL (3.4-5.0); ANION GAP 11.1 (8-16); CARBON DIOXIDE 29.4 mmol/L (21-32); CREATININE 0.8 mg/dL (0.6-1.3); POTASSIUM 3.5 mmol/L (3.5-5.1); TOTAL BILIRUBIN 0.1 mg/dL (0.0-1.0)
--- NOTE | 2020-05-18 23:35 | NUR ---
Pt c/o N/V and dizziness with abd pain for a few weeks. States she went to a clinic and was told she had a "blood infection." States she was prescribed amoxicillin x10 days, has been taking x2 days. Says she is feeling worse today so came to ER. Hx of HTN, DM.
[2020-05-18] MEDS ORDERED: MECLIZINE 25 MG TAB ONE (23:55)
[2020-05-18] MEDS ORDERED: ONDANSETRON 4 MG/2 ML VIAL ONE (23:56)
[2020-05-19 00:08] LABS: APPEARANCE,URINE CLEAR (CLEAR); BILIRUBIN,URINE NEGATIVE (NEGATIVE); BLOOD, URINE 1+ (NEGATIVE); COLOR,URINE YELLOW (YELLOW); LEUKOCYTE ESTERASE ,URINE TRACE (NEGATIVE); NITRITE, URINE NEGATIVE (NEGATIVE); UGLUCOSE NEGATIVE (NEGATIVE)
[2020-05-19] MEDS ORDERED: cefTRIAXone 1,000 MG VIAL ONE (00:18)
[2020-05-19] MEDS ORDERED: NACL 0.9% 1,000 ML IV ONE (00:25)
[2020-05-19] MEDS ORDERED: ONDANSETRON 4 MG/2 ML VIAL IVP PRN (01:10)
[2020-05-19] MEDS ORDERED: ACETAMINOPHEN 325 MG TAB PO PRN (01:10)
[2020-05-19] MEDS ORDERED: NACL 0.9% 1,000 ML IV SCH (01:10)
[2020-05-19] MEDS ORDERED: METF500T PO (01:21)
[2020-05-19] MEDS ORDERED: AMOX500C25 PO (01:21)
[2020-05-19] MEDS ORDERED: FURO-572 PO (01:21)
--- NOTE | 2020-05-19 01:53 | NUR ---
Patient does not wish to proceed with medical care recommended by Dr. Farmer. Patient given information related to possible complications, up to and including , which could occur as a result of leaving hospital at this time. Patient verbalizes understanding of risks involved leaving against medical advice. Patient has signed AMA form.
[2020-05-19 01:57] VITALS: BP 111/71
[2020-05-19] MEDS ORDERED: MECLIZINE 25 MG TAB PO SCH (09:00)
--- NOTE | 2020-05-19 10:47 | NUR ---
SOCIAL WORK NOTE: Patient's Orientation Person Situation Place Time Information Provided By PATIENT Comments SW WAS UNABLE TO MEET PATIENT AT BEDSIDE. SW COMPLETED ASSESSMENT WITH PATIENT TELEPHONICALLY. Contract Associate Manager, Realtionship and Phone Number NILSON ALONZO [phone] Healthcare Power of Channel Marketing Coordinator No Does Patient Have a POLST No Identifying Problems No Social Work Triggers Is A Social Work Consult Needed No Mandate Report Filed No Explanation Of Identifying Problems PATIENT IS A 39-YEAR-OLD FEMALE ADMITTED FOR DIZZINESS AND UTI. PATIENT HAS PMHX OF CHOLECYSTECTOMY. Admitted From Home Pre-Admission Level Of Functioning Status Independent/Ambulatory Prior Resources/Services Used In Last 12 Months No Prior Resources Used Prior DME No Prior DME Used Dialysis Comments N/A Living Situation Apartment Lives With Family Patient Had Caregiver No Home Support No Caregiver Issues Financial Issues No Known Financial Issue Referral To The Financial Counselor Needed Yes Factors/Needs No D/C Needs Identified Pt/Rep Participated In Discharge Plan Yes Patient/Family Agress With Discharge Plan Yes Discharge Plan Comments TENTATIVE DISCHARGE PLAN IS FOR PATIENT TO RETURN HOME. DC Plan Status Initiated
--- NOTE | 2020-05-19 11:21 | NUR ---
DC PLANNIN YRS OLD FEMALE PATIENT WAS ADMITTED FROM HOME WITH A DX OF DIZZINESS, UTI . PT HAS A HX OF HTN, ASTHMA, CHOLECYSTECTOMY AND FIBROMYALGIA. CT HEAD NEGATIVE ,C X-RAY NORMAL. ADMINISTERED IVF , ROCEPHIN IV ABX. URINE AND BLOOD CULTURE PENDING, ON ROOM AIR SATING 98% . DC PLAN TO GO HOME WHEN STABLE. CM TO FOLLOW
[2020-05-19] MEDS ORDERED: CEPH250C16 PO (12:59)
== END 2020-05-19 01:53 | disposition left against medical advice (07) | DRG 111 ==
LOC: MED 20:58 → MTU 05-19 01:11
PROVIDERS: ADMIT Hospitalist; ATTEND Hospitalist
DX: R42 Dizziness and giddiness (principal); N39.0 Urinary tract infection, site not specified; Z53.29 Procedure and treatment not carried out because of patient's decision for other reasons; I10 Essential (primary) hypertension; J45.909 Unspecified asthma, uncomplicated; Z90.49 Acquired absence of other specified parts of digestive tract
CPT/HCPCS: 36415; 70450; 71045; 80053; 81001; 83605; 84484; 85025; 87040; 87086; 93005; 96365; 96375; 99285; J0696; J2405; J7060; J8597

== ENCOUNTER 2020-05-19 11:17 | Emergency (ER) | payer OTHER ==
[~2020-05-19] VITALS: Ht 167.6 cm; Wt 104.3 kg
[~2020-05-19 11:17] MED LIST: AMOX500C25 PO; FURO-572 PO; METF500T PO
[2020-05-19 11:22] VITALS: BP 118/74
--- NOTE | 2020-05-19 11:32 | NUR ---
Pt ambulated to room 4 then to the restroom. Addendum: 05/19/20 at 1141 by [email or web address] Pt states she was here yesterday was suppose to be admitted but had to leave d/t having children at home. Today pt returns w/increased weakness and tiredness. Pt states she is taking amoxicillin at home but was told she needs antibiotics through the IV. Pt states she is taking amoxicillin after being diagnosised w/a blood disorder at her clinic. Pt currently takes metformin, metropolol, aspirin, lisinopril amoxicillin loratidine. pt has hx of borderline dm, htn, asthma and fibromyalgia. at bedside. Addendum: 05/19/20 at 1200 by [email or web address] urine collected and sent w/agricultural labor camp manager. test completed.
--- NOTE | 2020-05-19 11:54 | NUR ---
lab at bedside
[2020-05-19 12:07] LABS: BASOPHILS # (AUTO) 0.1 K/uL (0.00-0.22); BASOPHILS % (AUTO) 1.1 % (0.0-2.0); EOSINOPHILS # (AUTO) 0.4 K/uL (0-0.4); EOSINOPHILS % (AUTO) 4.8 % (0.0-4.0); HEMATOCRIT 34.1 % (36-48); HEMOGLOBIN 10.8 g/dL (12.0-16.0); LYMPHOCYTES # (AUTO) 2.6 K/uL (2.5-16.5); LYMPHOCYTES % (AUTO) 28.2 % (20.5-51.1); MEAN CORPUSCULAR HEMOGLOBIN 24 pg (27-31); MEAN CORPUSCULAR HGB CONC 32 g/dL (33-37); MEAN CORPUSCULAR VOLUME 76.9 fL (80-94); MONOCYTES # (AUTO) 0.6 K/uL (0.8-1.0); MONOCYTES % (AUTO) 6.8 % (1.7-9.3); NEUTROPHILS # (AUTO) 5.4 K/uL (1.8-7.7); NEUTROPHILS % (AUTO) 59.1 % (42.2-75.2); PLATELET COUNT (AUTO) 462 K/uL (140-450); RED BLOOD CELL COUNT(AUTO) 4.44 MIL/uL (4.20-5.40); RED CELL DISTRIBUTION WIDTH 15.5 % (11.6-13.7); WHITE BLOOD COUNT (AUTO) 9.1 K/uL (4.8-10.8)
[2020-05-19 12:10] LABS: BILIRUBIN,URINE NEGATIVE (NEGATIVE); BLOOD, URINE NEGATIVE (NEGATIVE); COLOR,URINE YELLOW (YELLOW); LEUKOCYTE ESTERASE ,URINE TRACE (NEGATIVE); NITRITE, URINE NEGATIVE (NEGATIVE); UGLUCOSE NEGATIVE (NEGATIVE)
[2020-05-19 12:21] LABS: ALBUMIN 3.3 g/dL (3.4-5.0); ANION GAP 10.4 (8-16); CARBON DIOXIDE 29.4 mmol/L (21-32); CREATININE 0.9 mg/dL (0.6-1.3); POTASSIUM 3.8 mmol/L (3.5-5.1); TOTAL BILIRUBIN 0.2 mg/dL (0.0-1.0)
[2020-05-19 12:43] LABS: APPEARANCE,URINE CLEAR (CLEAR); RBC,URINE 0-5 /HPF (0-5); WBC,URINE 0-5 /HPF (0-5)
[2020-05-19] MEDS ORDERED: CEPH250C16 PO (12:59)
--- NOTE | 2020-05-19 14:03 | NUR ---
Pt a/ox4, able to verbalize needs. Discharge and medication instructions given to patient. Pt states she understands d/c instructions. Pt ambulated out of ed w/belongings and w/o incident. Pt given off-work note.
[2020-05-19 14:05] VITALS: BP 115/66
== END 2020-05-19 14:03 | disposition home or self-care (01) ==
LOC: MED 11:17
DX: N39.0 Urinary tract infection, site not specified (principal); K02.9 Dental caries, unspecified; J45.909 Unspecified asthma, uncomplicated; E11.9 Type 2 diabetes mellitus without complications; I10 Essential (primary) hypertension; Z79.899 Other long term (current) drug therapy
CPT/HCPCS: 36415; 80053; 81001; 81025; 85025; 85651; 99283

== ENCOUNTER 2021-05-08 17:03 | Emergency (ER) | payer OTHER ==
[~2021-05-08] VITALS: Ht 167.6 cm; Wt 105.2 kg
[~2021-05-08 17:03] MED LIST changes: +CEPH250C16 PO
[2021-05-08 17:22] VITALS: BP 145/99
[2021-05-08] MEDS ORDERED: ONDANSETRON 4 MG ODT PO ONE (18:35)
[2021-05-08 19:43] LABS: BASOPHILS # (AUTO) 0.1 K/uL (0.00-0.22); BASOPHILS % (AUTO) 1.2 % (0.0-2.0); EOSINOPHILS # (AUTO) 0.4 K/uL (0-0.4); EOSINOPHILS % (AUTO) 3.8 % (0.0-4.0); HEMATOCRIT 36.1 % (36-48); HEMOGLOBIN 11.6 g/dL (12.0-16.0); LYMPHOCYTES # (AUTO) 3.4 K/uL (2.5-16.5); LYMPHOCYTES % (AUTO) 31.8 % (20.5-51.1); MEAN CORPUSCULAR HEMOGLOBIN 24 pg (27-31); MEAN CORPUSCULAR HGB CONC 32 g/dL (33-37); MEAN CORPUSCULAR VOLUME 74.7 fL (80-94); MONOCYTES # (AUTO) 0.5 K/uL (0.8-1.0); MONOCYTES % (AUTO) 4.9 % (1.7-9.3); NEUTROPHILS # (AUTO) 6.2 K/uL (1.8-7.7); NEUTROPHILS % (AUTO) 58.3 % (42.2-75.2); PLATELET COUNT (AUTO) 497 K/uL (140-450); RED BLOOD CELL COUNT(AUTO) 4.84 MIL/uL (4.20-5.40); RED CELL DISTRIBUTION WIDTH 16.4 % (11.6-13.7); WHITE BLOOD COUNT (AUTO) 10.7 K/uL (4.8-10.8)
[2021-05-08] MEDS ORDERED: ONDANSETRON 4 MG ODT ONE (19:45)
[2021-05-08 20:11] LABS: ALBUMIN 3.8 g/dL (3.4-5.0); ANION GAP 12.5 (8-16); CARBON DIOXIDE 32.6 mmol/L (21-32); CREATININE 0.9 mg/dL (0.6-1.3); POTASSIUM 3.1 mmol/L (3.5-5.1); TOTAL BILIRUBIN 0.2 mg/dL (0.0-1.0)
[2021-05-08] MEDS ORDERED: SODIUM PHOS / POTASSIUM PHOS 1 PKT PDR PO STA (20:34)
[2021-05-08] MEDS ORDERED: POTA10TA70 PO (20:43)
[2021-05-08 21:32] VITALS: BP 142/99
--- NOTE | 2021-05-08 21:35 | NUR ---
Patient discharged with v/s stable. Written and verbal after care instructions given and explained. Patient verbalized understanding. with steady gait. All questions addressed prior to discharge. Advised to follow up with PMD.
== END 2021-05-08 21:35 | disposition home or self-care (01) ==
LOC: MED 17:03
DX: E86.0 Dehydration (principal); I10 Essential (primary) hypertension; G44.209 Tension-type headache, unspecified, not intractable; E87.6 Hypokalemia; J45.909 Unspecified asthma, uncomplicated; E11.9 Type 2 diabetes mellitus without complications; Z79.84 Long term (current) use of oral hypoglycemic drugs; Z79.899 Other long term (current) drug therapy
CPT/HCPCS: 36415; 80053; 81025; 83605; 84484; 85025; 87040; 93005; 99284; Q0162

== ENCOUNTER 2023-04-02 16:05 | Emergency (ER) | payer OTHER ==
[~2023-04-02] VITALS: Ht 167.6 cm; Wt 81.6 kg
[~2023-04-02 16:05] MED LIST changes: +METF-346 PO; -METF500T PO; +POTA10TA70 PO
[2023-04-02 16:37] VITALS: BP 163/92; PULSE 93; RESP 18; TEMP 96.8; O2SAT 98
[2023-04-02 17:00] VITALS: O2SAT 98
[2023-04-02 17:03] LABS: APPEARANCE,URINE CLEAR (CLEAR); BILIRUBIN,URINE NEGATIVE (NEGATIVE); BLOOD, URINE TRACE-I (NEGATIVE); COLOR,URINE YELLOW (YELLOW); LEUKOCYTE ESTERASE ,URINE NEGATIVE (NEGATIVE); NITRITE, URINE NEGATIVE (NEGATIVE); PH,URINE 6.5 (5.0-9.0); PROTEIN,URINE NEGATIVE (NEGATIVE); UGLUCOSE NEGATIVE (NEGATIVE); UROBILINOGEN,URINE 0.2 EU/dL (0.2 - 1)
[2023-04-02 17:07] LABS: BASOPHILS # (AUTO) 0.1 K/uL (0.00-0.22); EOSINOPHILS # (AUTO) 0.7 K/uL (0-0.4); EOSINOPHILS % (AUTO) 7.5 % (0.0-4.0); HEMATOCRIT 34.4 % (36-48); HEMOGLOBIN 11.1 g/dL (12.0-16.0); LYMPHOCYTES # (AUTO) 2.4 K/uL (2.5-16.5); LYMPHOCYTES % (AUTO) 26.7 % (20.5-51.1); MEAN CORPUSCULAR HEMOGLOBIN 24 pg (27-31); MEAN CORPUSCULAR HGB CONC 32 g/dL (33-37); MEAN CORPUSCULAR VOLUME 75.1 fL (80-94); MONOCYTES # (AUTO) 0.6 K/uL (0.8-1.0); MONOCYTES % (AUTO) 6.2 % (1.7-9.3); NEUTROPHILS # (AUTO) 5.3 K/uL (1.8-7.7); NEUTROPHILS % (AUTO) 58.6 % (42.2-75.2); PLATELET COUNT (AUTO) 439 K/uL (140-450); RED BLOOD CELL COUNT(AUTO) 4.58 MIL/uL (4.20-5.40); RED CELL DISTRIBUTION WIDTH 15.8 % (11.6-13.7)
[2023-04-02 17:23] LABS: ANION GAP 13.3 (8-16); CALCIUM 9.2 mg/dL (8.5-10.1); CARBON DIOXIDE 26.2 mmol/L (21-32); CREATININE 0.8 mg/dL (0.6-1.3); POTASSIUM 3.5 mmol/L (3.5-5.1)
[2023-04-02] MEDS ORDERED: FAMOTIDINE 20 MG TAB PO ONE (17:45)
[2023-04-02] MEDS ORDERED: predniSONE 20 MG TAB PO ONE (17:45)
[2023-04-02] MEDS ORDERED: ALBUTEROL SULFATE/IPRATROPIU 3 ML SOL IH ONE (17:45)
[2023-04-02] MEDS ORDERED: DICYCLOMINE HCL LIQUID 20 MG, ALUMINUM HYD/MAG/SIMETHICONE 30 ML, LIDOCAINE VISCOUS 2% ... PO ONE ×3 (17:45)
[2023-04-02 17:56] VITALS: PULSE 79; RESP 20; O2SAT 99
[2023-04-02] MEDS ORDERED: DIPH25TA53 PO (18:49)
[2023-04-02] MEDS ORDERED: ALBU2SYR98 PO (18:49)
[2023-04-02] MEDS ORDERED: PRED20TA5 PO (18:49)
[2023-04-02] MEDS ORDERED: OMEP40EC23 PO (18:51)
[2023-04-02] MEDS ORDERED: MECL-303 PO (18:54)
[2023-04-02 18:59] VITALS: BP 163/92; PULSE 79; RESP 20; TEMP 96.8; O2SAT 99
== END 2023-04-02 19:04 | disposition home or self-care (01) ==
LOC: MED 16:05
DX: J45.901 Unspecified asthma with (acute) exacerbation (principal); K21.9 Gastro-esophageal reflux disease without esophagitis; R07.89 Other chest pain; I10 Essential (primary) hypertension; D64.9 Anemia, unspecified; E11.9 Type 2 diabetes mellitus without complications; Z79.899 Other long term (current) drug therapy; Z79.2 Long term (current) use of antibiotics
CPT/HCPCS: 36415; 71045; 80048; 81003; 81025; 83880; 84484; 85025; 93005; 94640; 99285

== ENCOUNTER 2023-08-08 08:59 | Emergency (ER) | payer OTHER ==
[~2023-08-08] VITALS: Ht 165.1 cm; Wt 104.3 kg
[~2023-08-08 08:59] MED LIST changes: +ALBU2SYR98 PO; +DIPH25TA53 PO; +MECL-303 PO; +OMEP40EC23 PO; +PRED20TA5 PO
[2023-08-08 09:08] VITALS: BP 135/84; PULSE 81; RESP 16; TEMP 98.4; O2SAT 98
[2023-08-08 09:20] VITALS: BP 135/84; PULSE 84; RESP 15; TEMP 98.4
[2023-08-08 09:25] VITALS: O2SAT 99
[2023-08-08 09:57] LABS: APPEARANCE,URINE CLEAR (CLEAR); BILIRUBIN,URINE NEGATIVE (NEGATIVE); BLOOD, URINE 3+ (NEGATIVE); COLOR,URINE YELLOW (YELLOW); LEUKOCYTE ESTERASE ,URINE NEGATIVE (NEGATIVE); NITRITE, URINE NEGATIVE (NEGATIVE); PROTEIN,URINE NEGATIVE (NEGATIVE); UGLUCOSE TRACE (NEGATIVE); UROBILINOGEN,URINE 0.2 EU/dL (0.2 - 1)
[2023-08-08 10:28] LABS: BACTERIA,URINE FEW /HPF (None Seen); RBC,URINE >20 (MANY) /HPF (0-5); SQUAMOUS EPITHELIAL CELL,UR 0-3 (FEW) /LPF (0-3 (FEW)); WBC,URINE 0-5 /HPF (0-5)
[2023-08-08] MEDS: KETOROLAC 60 MG/2 ML VIAL IM ONE (10:38)
[2023-08-08] MEDS: ONDANSETRON 4 MG ODT PO ONE (10:45)
[2023-08-08] MEDS ORDERED: ONDA8TAB87 PO (11:02)
[2023-08-08] MEDS ORDERED: MECL-303 PO (11:02)
[2023-08-08] MEDS ORDERED: IBUP-2213 PO (11:02)
== END 2023-08-08 11:25 | disposition home or self-care (01) ==
LOC: MED 08:59
DX: R51.9 Headache, unspecified (principal); R42 Dizziness and giddiness; R11.2 Nausea with vomiting, unspecified; J45.909 Unspecified asthma, uncomplicated; I10 Essential (primary) hypertension; Z90.49 Acquired absence of other specified parts of digestive tract; Z79.1 Long term (current) use of non-steroidal anti-inflammatories (NSAID); Z79.84 Long term (current) use of oral hypoglycemic drugs; Z79.2 Long term (current) use of antibiotics; Z79.899 Other long term (current) drug therapy
CPT/HCPCS: 81001; 81025; 82948; 96372; 99283; J1885; Q0162

== ENCOUNTER 2023-08-10 21:09 | Emergency (ER) | payer OTHER ==
[~2023-08-10] VITALS: Ht 165.1 cm; Wt 86.2 kg
[~2023-08-10 21:09] MED LIST changes: +IBUP-2213 PO; +ONDA8TAB87 PO
[2023-08-10 21:17] VITALS: BP 161/98; PULSE 86; RESP 16; TEMP 96.9; O2SAT 98
[2023-08-10 21:49] LABS: APPEARANCE,URINE CLEAR (CLEAR); BILIRUBIN,URINE NEGATIVE (NEGATIVE); BLOOD, URINE 3+ (NEGATIVE); COLOR,URINE YELLOW (YELLOW); LEUKOCYTE ESTERASE ,URINE NEGATIVE (NEGATIVE); NITRITE, URINE NEGATIVE (NEGATIVE); PROTEIN,URINE NEGATIVE (NEGATIVE); UGLUCOSE NEGATIVE (NEGATIVE); UROBILINOGEN,URINE 0.2 EU/dL (0.2 - 1)
[2023-08-10] MEDS: NACL 0.9% 1,000 ML IV ONE ×2 (22:09→22:55)
[2023-08-10 22:17] LABS: BASOPHILS # (AUTO) 0.1 K/uL (0.00-0.22); BASOPHILS % (AUTO) 1.4 % (0.0-2.0); EOSINOPHILS # (AUTO) 0.4 K/uL (0-0.4); EOSINOPHILS % (AUTO) 3.5 % (0.0-4.0); HEMATOCRIT 33.3 % (36-48); HEMOGLOBIN 10.9 g/dL (12.0-16.0); LYMPHOCYTES # (AUTO) 2.9 K/uL (2.5-16.5); LYMPHOCYTES % (AUTO) 28.6 % (20.5-51.1); MEAN CORPUSCULAR HEMOGLOBIN 25 pg (27-31); MEAN CORPUSCULAR HGB CONC 33 g/dL (33-37); MEAN CORPUSCULAR VOLUME 75.3 fL (80-94); MONOCYTES # (AUTO) 0.5 K/uL (0.8-1.0); MONOCYTES % (AUTO) 4.9 % (1.7-9.3); NEUTROPHILS # (AUTO) 6.2 K/uL (1.8-7.7); NEUTROPHILS % (AUTO) 61.6 % (42.2-75.2); PLATELET COUNT (AUTO) 453 K/uL (140-450); RED BLOOD CELL COUNT(AUTO) 4.43 MIL/uL (4.20-5.40); RED CELL DISTRIBUTION WIDTH 16.4 % (11.6-13.7); WHITE BLOOD COUNT (AUTO) 10.1 K/uL (4.8-10.8)
[2023-08-10] MEDS: KETOROLAC 30 MG/ML VIAL IVP ONE (22:18)
[2023-08-10] MEDS: ONDANSETRON 4 MG/2 ML VIAL IVP ONE (22:19)
[2023-08-10 22:30] LABS: ANION GAP 13.7 (8-16); CALCIUM 8.6 mg/dL (8.5-10.1); CARBON DIOXIDE 26.9 mmol/L (21-32); POTASSIUM 3.6 mmol/L (3.5-5.1)
[2023-08-10 22:37] LABS: INR 0.91 (0.8-1.2); PROTHROMBIN TIME 9.6 secs (10.8-13.4)
[2023-08-10 22:42] LABS: ALANINE AMINOTRANSFERASE 19 U/L (12-78); ALBUMIN 3.3 g/dL (3.4-5.0); ALKALINE PHOSPHATASE 65 U/L (50-136); ASPARTATE AMINOTRANSFERASE 70 U/L (15-37); TOTAL BILIRUBIN 0.5 mg/dL (0.0-1.0); TOTAL PROTEIN, SERUM 7.6 g/dL (6.4-8.2)
[2023-08-10 22:57] VITALS: TEMP 96.9; O2SAT 97
[2023-08-10] MEDS ORDERED: AZIT250T4 PO (23:10)
[2023-08-10] MEDS ORDERED: PRED20TA5 PO (23:10)
[2023-08-10 23:22] VITALS: BP 138/83; PULSE 77; RESP 18; O2SAT 98
== END 2023-08-10 23:24 | disposition home or self-care (01) ==
LOC: MED 21:09
DX: R51.9 Headache, unspecified (principal); R42 Dizziness and giddiness; R11.2 Nausea with vomiting, unspecified; R10.9 Unspecified abdominal pain; J45.909 Unspecified asthma, uncomplicated; I10 Essential (primary) hypertension; Z79.1 Long term (current) use of non-steroidal anti-inflammatories (NSAID); Z79.2 Long term (current) use of antibiotics; Z79.84 Long term (current) use of oral hypoglycemic drugs; Z79.899 Other long term (current) drug therapy
CPT/HCPCS: 36415; 70450; 80048; 80076; 81003; 81025; 83880; 84484; 85025; 85610; 85730; 96361; 96374; 96375; 99285; J1885; J2405; J7030

== ENCOUNTER 2023-12-31 16:51 | Emergency (ER) | payer OTHER ==
[~2023-12-31] VITALS: Ht 167.6 cm; Wt 104.3 kg
[~2023-12-31 16:51] MED LIST changes: +AZIT250T4 PO
[2023-12-31 17:09] VITALS: BP 151/89; PULSE 78; RESP 18; TEMP 98.1; O2SAT 96
[2023-12-31 19:29] LABS: BASOPHILS % (AUTO) 0.4 % (0.0-2.0); EOSINOPHILS # (AUTO) 0.6 K/uL (0-0.4); EOSINOPHILS % (AUTO) 5.8 % (0.0-4.0); HEMATOCRIT 38.8 % (36-48); HEMOGLOBIN 12.6 g/dL (12.0-16.0); LYMPHOCYTES # (AUTO) 2.8 K/uL (2.5-16.5); LYMPHOCYTES % (AUTO) 29.1 % (20.5-51.1); MEAN CORPUSCULAR HEMOGLOBIN 25 pg (27-31); MEAN CORPUSCULAR HGB CONC 32 g/dL (33-37); MEAN CORPUSCULAR VOLUME 76.6 fL (80-94); MONOCYTES # (AUTO) 0.5 K/uL (0.8-1.0); MONOCYTES % (AUTO) 5.6 % (1.7-9.3); NEUTROPHILS # (AUTO) 5.7 K/uL (1.8-7.7); NEUTROPHILS % (AUTO) 59.1 % (42.2-75.2); PLATELET COUNT (AUTO) 504 K/uL (140-450); RED BLOOD CELL COUNT(AUTO) 5.07 MIL/uL (4.20-5.40); RED CELL DISTRIBUTION WIDTH 15.6 % (11.6-13.7); WHITE BLOOD COUNT (AUTO) 9.7 K/uL (4.8-10.8)
[2023-12-31 19:31] LABS: APPEARANCE,URINE CLEAR (CLEAR); BILIRUBIN,URINE NEGATIVE (NEGATIVE); BLOOD, URINE 1+ (NEGATIVE); COLOR,URINE YELLOW (YELLOW); LEUKOCYTE ESTERASE ,URINE 1+ (NEGATIVE); NITRITE, URINE NEGATIVE (NEGATIVE); PROTEIN,URINE NEGATIVE (NEGATIVE); UGLUCOSE NEGATIVE (NEGATIVE); UROBILINOGEN,URINE 0.2 EU/dL (0.2 - 1)
[2023-12-31] MEDS: PROCHLORPERAZINE 10 MG/2 ML VIAL IM ONE (19:31)
[2023-12-31] MEDS: KETOROLAC 30 MG/ML VIAL IM ONE (19:31)
[2023-12-31 19:38] LABS: ANION GAP 9.6 (8-16); CALCIUM 9.4 mg/dL (8.5-10.1); CARBON DIOXIDE 32.7 mmol/L (21-32); POTASSIUM 3.3 mmol/L (3.5-5.1)
[2023-12-31 19:53] LABS: BACTERIA,URINE FEW /HPF (None Seen)
[2023-12-31 19:54] LABS: SQUAMOUS EPITHELIAL CELL,UR 0-3 (FEW) /LPF (0-3 (FEW))
[2023-12-31] MEDS ORDERED: MECL-303 PO (20:05)
[2023-12-31] MEDS ORDERED: NITR100C7 PO (20:05)
== END 2023-12-31 20:10 | disposition home or self-care (01) ==
LOC: MED 16:51
DX: H81.399 Other peripheral vertigo, unspecified ear (principal); G43.909 Migraine, unspecified, not intractable, without status migrainosus; N39.0 Urinary tract infection, site not specified; J45.909 Unspecified asthma, uncomplicated; I10 Essential (primary) hypertension; E11.9 Type 2 diabetes mellitus without complications; Z79.899 Other long term (current) drug therapy
CPT/HCPCS: 36415; 80048; 81001; 81025; 85025; 87086; 96372; 99284; J0780; J1885; Q0163